=== PATIENT | female | born 1950 | race Caucasian/White ===

== ENCOUNTER 2017-07-26 08:24 | Observation (INO) | payer OTHER ==
[~2017-07-26] VITALS: Ht 170.2 cm; Wt 156.5 kg
[~2017-07-26 08:24] MED LIST: ALPRAZOLAM0.5 MG; AMLODIPINE BESYL5 MG PO; ANTIVERT25 MG PO; ASPIR 8181 M1 PO; ASPIRIN PO; Aspirin E.C. PO; BACTROBAN OINTM22 GM TP; CALCIUM + VITA1 EACH PO; CALCIUM WITH V1 EACH PO; CEFTRIAXONE PO; CELEBREX200 MG PO; Ceftin PO; D-VERT25 MG PO; DIABETA,MICRON2.5 MG; DIOVAN40 MG PO; DITROPAN XL10 MG PO; Detrol PO; Diabeta,Micronase PO; Ecotrin PO; Feosol PO; GLYBURIDE2.5 MG PO; GLYBURIDE5 MG PO; GLYNASE1.5 MG PO; KAON-CL 1010 MEQ PO; Keflex PO; LASIX40 MG; LASIX40 MG PO; LOW-DOSE ASPIRI81 MG PO; LYRICA75 MG; LYRICA75 MG PO; MELOXICAM7.5 MG; MELOXICAM7.5 MG PO; METHOCARBAMOL500 MG PO; MOBIC7.5 MG PO; Micro-K,K-Tab,K-Dur, PO; NORVASC5 MG; NORVASC5 MG PO; Norvasc PO; OMEPRAZOLE40 M1 PO; OXYCODONE5 MG PO; POTASSIUM CHLO10 ME4 PO; PRAVACHOL10 MG PO; PRILOSEC40 MG PO; PROTONIX40 MG PO; PriLOSEC PO; SENOKOT S,PE1 TABLET PO; Tylenol Regular Stre PO; ULTRAM50 MG PO; Ultram PO; VESICARE5 MG PO; VITAMIN D31000 UNIT PO; Vicodin,Norco 5/325 PO; XANAX PO; XANAX XR0.5 MG PO; XANAX0.5 MG PO; [UNRECOGNIZED DRUG - OTHER] PO; oxyCODONE PO; predniSONE PO
[2017-07-26] MEDS ORDERED: GABAPENTIN300 MG PO (08:57)
[2017-07-26] MEDS ORDERED: ADVIL,NUPRIN,M200 MG PO (08:57)
[2017-07-26 09:41] LABS: HEMATOCRIT 42.6 % (36.0-46.0); HEMOGLOBIN 13.8 G/DL (11.9-15.5); MCH 27.4 PG (29.0-34.0); MCHC 32.4 G/DL (30.0-36.0); MCV 84.5 FL (83-99); PLATELET COUNT 208 K/uL (156-360); RBC DIS.WIDTH-CV 14.9 % (11.8-14.6); RBC DIS.WIDTH-SD 45.6 % (39-53); RED BLOOD COUNT 5.04 M/uL (3.80-5.20); WHITE BLOOD COUNT 7.2 K/uL (4.1-10.2)
[2017-07-26 09:52] LABS: CHLORIDE 103 mEq/L (99-109); POTASSIUM 4.4 mEq/L (3.7-5.4); SODIUM 140 mEq/L (136-147)
[2017-07-26 09:54] LABS: GLUCOSE 102 mg/dL (70-99)
[2017-07-26 09:58] LABS: CREATININE 0.8 mg/dL (0.6-1.3); GFR ESTIMATE (CALCULATED) > 59 mL/min/
[2017-07-26 09:59] LABS: UREA NITROGEN (BUN) 17 mg/dL (9-23)
[2017-07-26 10:02] LABS: TROP-I INTERPRETATION NEGATIVE; TROPONIN-I < 0.01 ng/mL (0.0-0.30)
[2017-07-26 15:17] VITALS: BP 175/73
[2017-07-26 17:06] LABS: TROP-I INTERPRETATION NEGATIVE; TROPONIN-I 0.01 ng/mL (0.0-0.30)
[2017-07-26 19:10] VITALS: BP 140/67
[2017-07-26 23:07] VITALS: BP 171/77
[2017-07-27 01:06] LABS: TROP-I INTERPRETATION NEGATIVE; TROPONIN-I < 0.01 ng/mL (0.0-0.30)
[2017-07-27 03:26] VITALS: BP 155/70
[2017-07-27 05:44] LABS: HEMATOCRIT 41.9 % (36.0-46.0); HEMOGLOBIN 12.9 G/DL (11.9-15.5); MCH 26.2 PG (29.0-34.0); MCHC 30.8 G/DL (30.0-36.0); MCV 85.2 FL (83-99); PLATELET COUNT 214 K/uL (156-360); RBC DIS.WIDTH-CV 15.2 % (11.8-14.6); RBC DIS.WIDTH-SD 47.6 % (39-53); RED BLOOD COUNT 4.92 M/uL (3.80-5.20); WHITE BLOOD COUNT 6.9 K/uL (4.1-10.2)
[2017-07-27 06:20] LABS: ALBUMIN 3.7 G/DL (3.2-4.8); ALKALINE PHOSPHATASE 115 IU/L (3-129); ALT (GPT) 12 IU/L (3-49); AST (GOT) 11 IU/L (2-34); CHLORIDE 100 MEQ/L (99-109); CREATININE 0.6 MG/DL (0.6-1.3); GFR ESTIMATE (CALCULATED) > 59 mL/min/; GLUCOSE 137 mg/dL (70-99); POTASSIUM 4.3 MEQ/L (3.7-5.4); SODIUM 137 MEQ/L (136-147); TOTAL BILIRUBIN 0.8 MG/DL (0.0-1.0); TOTAL PROTEIN 6.6 G/DL (6.4-8.3); UREA NITROGEN (BUN) 20 mg/dL (9-23)
[2017-07-27 07:55] VITALS: BP 149/71
[2017-07-27 10:57] VITALS: BP 122/57
[2017-07-27] MEDS ORDERED: PRAVACHOL20 MG PO (14:52)
[2017-07-27] MEDS ORDERED: NITROSTAT0.4 MG SL (14:52)
[2017-07-27] MEDS ORDERED: Zeasorb Antifungal T TP (14:52)
[2017-07-27] MEDS ORDERED: LOSARTAN POTASS25 MG PO (14:52)
== END 2017-07-27 16:39 | disposition home or self-care (01) ==
LOC: EME 08:24 → EDOF 12:30 → CANRESERV 13:08 → ENRESERV 13:08 → CANRESERV 13:41 → ENRESERV 13:42 → EDOF 14:09 → 5WEST 15:07 → ENPENDDIS 07-27 → 5WEST 07-27 16:39
PROVIDERS: Internal Medicine
DX: R07.89 Other chest pain (principal); E11.9 Type 2 diabetes mellitus without complications; I10 Essential (primary) hypertension; E78.5 Hyperlipidemia, unspecified; Z87.891 Personal history of nicotine dependence; K21.9 Gastro-esophageal reflux disease without esophagitis; E66.01 Morbid (severe) obesity due to excess calories; Z68.41 Body mass index [BMI] 40.0-44.9, adult; F41.9 Anxiety disorder, unspecified; Z79.82 Long term (current) use of aspirin; Z79.84 Long term (current) use of oral hypoglycemic drugs
CPT/HCPCS: 71046; 80048; 80053; 84484; 85027; 93005; 99281; 99285; G0378; J1644